=== PATIENT | male | born 1980 | race Caucasian/White ===

== ENCOUNTER 2020-10-23 17:08 | Emergency (ER) | payer MEDICAID ==
[~2020-10-23] VITALS: Ht 185.4 cm; Wt 95.5 kg
[2020-10-23 17:35] VITALS: BP 124/87
[2020-10-23] MEDS ORDERED: PRED20TA PO (18:30)
[2020-10-23] MEDS ORDERED: LIDO20SO16 PO (18:30)
== END 2020-10-23 19:41 | disposition home or self-care (01) ==
LOC: ER 17:09
DX: U07.1 COVID-19 (principal); J02.0 Streptococcal pharyngitis; R50.9 Fever, unspecified; Z79.899 Other long term (current) drug therapy; R53.81 Other malaise
CPT/HCPCS: 87081; 87635; 87880; 99283; C9803